=== PATIENT | female | born 1985 | race Caucasian/White ===

== ENCOUNTER 2018-08-08 17:29 | Outpatient (REF) | payer OTHER, SELFPAY | END 2018-08-08 17:49 | LOC: NCHCN 17:29 | PROVIDERS: PCP Nurse Practitioner; Visit Provider Advanced Practice Midwife | DX: Z34.83 Encounter for supervision of other normal pregnancy, third trimester (principal); Z36.85 Encounter for antenatal screening for Streptococcus B | CPT/HCPCS: 87081 ==

== ENCOUNTER 2018-09-03 09:01 | Outpatient (CLI) | payer OTHER, SELFPAY ==
[2018-09-03 10:02] LABS: HCT 35.4 % (36.0-46.0); HGB 11.8 g/dL (12.0-15.5); Mean Corp. HGB Concentration 33.3 g/dL (32.0-36.0); Mean Corpuscular Hemoglobin 27.8 pg (27.0-33.0); Mean Corpuscular Volume 83.3 fL (80-95); Mean Platelet Volume 9.8 fL (8.0-11.0); Platelet Count 368 x1000/uL (130-400); RBC 4.25 m/cumm (4.00-5.20); RBC Distribution Width 12.9 % (11.7-14.6); White Blood Cell Count 10.72 k/cumm (4.4-10.8)
[2018-09-03 10:14] LABS: COMMENT (LAB VIEW ONLY) 21.38 mg/dL; PROTEIN < 6.0 mg/dL
[2018-09-03 10:21] LABS: ALT 16 U/L (12-78); AST 15 U/L (15-37); Albumin 2.5 g/dL (3.4-5.0); Alkaline Phosphatase 179 U/L (46-116); Bilirubin, Direct < 0.05 mg/dL (0.00-0.20); Bilirubin, Total 0.2 mg/dL (0.2-1.0); Uric Acid 3.7 mg/dL (2.6-6.0)
== END 2018-09-03 09:21 ==
PROVIDERS: PCP Nurse Practitioner; Visit Provider Advanced Practice Midwife
DX: R03.0 Elevated blood-pressure reading, without diagnosis of hypertension (principal)
CPT/HCPCS: 36415; 80076; 85027; 82565; 84156; 84550

== ENCOUNTER 2018-09-09 15:36 | Outpatient (CLI) | payer OTHER, SELFPAY ==
[2018-09-09 16:18] LABS: HCT 36.8 % (36.0-46.0); HGB 12.2 g/dL (12.0-15.5); Mean Corp. HGB Concentration 33.2 g/dL (32.0-36.0); Mean Corpuscular Hemoglobin 27.2 pg (27.0-33.0); Mean Corpuscular Volume 82.1 fL (80-95); Mean Platelet Volume 9.8 fL (8.0-11.0); Platelet Count 351 x1000/uL (130-400); RBC 4.48 m/cumm (4.00-5.20); RBC Distribution Width 13.2 % (11.7-14.6); White Blood Cell Count 9.92 k/cumm (4.4-10.8)
--- NOTE | 2018-09-09 23:14 | W.PM.HP.N ---
Date of service: 09/09/18 Time of Service: 23:15 Assessment and Plan (1) : Current visit: Yes Status: Acute Patient is wishes to proceed with the delivery. Currently 41 weeks estimated gestational age. She declines tubal sterilization. Her plans to have the vasectomy in the near future. (2) Previous delivery affecting : Current visit: Yes Status: Acute Informed consent was obtained today we discussed the risks and benefits of the delivery. Risks included infection damage to surrounding structures including bowel bladder ureters and blood vessels. I described the procedure she had the opportunity to ask questions and had them answered to her satisfaction. History of Present Illness Narrative: Patient is a 32-year old female with a estimated date of delivery 09/04/2018 based on a first trimester ultrasound who presents for a preop history and physical in anticipation of a planned elective repeat delivery on 09/10/2018. course: She establish care at 8 weeks estimated gestational age. She had a total of 13 visits. Total weight gain 37 pounds first rest of blood pressure 110/58 the returns to blood pressure 120/86. Size has been equal today she had a normal second trimester morphology ultrasound. Normal OB labs she is GBS rectovaginal culture positive. She was counseled regarding trial of labor and wished to have a trial of labor if she were to go into spontaneous labor which has not occurred. Patient is has declined traveling to [facility] for induction of labor. Review of Systems Constitutional Reports system reviewed and no additional complaints, except as docu ENT Reports nasal discharge (rhinorhea) Respiratory Reports system reviewed and no additional complaints, except as docu Gastrointestinal Reports system reviewed and no additional complaints, except as docu Genitourinary Reports as per HPI Musculoskeletal Reports system reviewed and no additional complaints, except as docu Psychiatric Reports other [facility] Family History Mother Essential hypertension Son Asthma Medical History (Acute) Social History adopted: No foster care: No household members: spouse, children and other details: son is Shorty. 3yo marital status: Eula Farrell number of children: 1 current occupational status: employed current occupation: [employer] raising pets and animals: Yes (dog) pets and animals: dog(s) frequency: 5-6 times per week duration: 15-30 minutes/day Smoking/Tobacco Use Status: Never alcohol intake: former details: currently ( no alcohol) when not 5-7 drinks a week substance use type: does not use sindy/yarsani: athiest special sindy needs: No seatbelt use: always helmet use: Yes drive intox or ride w/ intox skip load driver: No working smoke detector in home: Yes fire extinguisher in home: Yes carbon monox detector in home: Yes firearms in home: Yes victim of physical abuse: No victim of emotional abuse: No victim of sexual abuse: No Surgical History section (04/09/15) Female Reproductive History Menstrual Total pregnancies: 2 Para: 1 Full term: 1 Premature: 0 Ab induced: 0 Ab spontaneous: 0 Ectopics: 0 Multiple births: 0 Meds Home Medications Medication Instructions Recorded Confirmed Type multivitamin [Multi-Vitamin Daily] 1 ea PO DAILY 02/13/18 09/09/18 History folic acid 0.4 mg PO DAILY #1 04/18/18 09/09/18 History lactobacillus combination no.4 1 tab PO DAILY 09/08/18 09/09/18 History [Probiotic] Allergies Allergy/AdvReac Type Severity Reaction Status Date / Time No Known Allergies Allergy Unverified 09/09/18 14:35 Exam Const General: healthy appearing, comfortable and other (Tearful during the preoperative discussion) Nutritional Appearance: well nourished Orientation: alert, awake and oriented x3 Resp Effort & Inspection: normal respiratory effort Auscultation: clear to auscultation bilaterally Cardio Palpation: normal PMI Rate: regular rate Rhythm: regular rhythm Heart Sounds: S1 normal and S2 normal GI Inspection: normal to inspection Palpation: no hepatosplenomegaly General: deferred OB/External & Speculum: other Skin General skin exam: no rashes or lesions noted Results Labs : 09/09/18 15:50 Laboratory Results - last 24 hr 09/09/18 09/09/18 15:50 15:50 WBC 9.92 RBC 4.48 Hgb 12.2 Hct 36.8 MCV 82.1 MCH 27.2 MCHC 33.2 RDW 13.2 Plt Count 351 MPV 9.8 Patient ABO/Rh O Positive Antibody Screen Negative
--- NOTE | 2018-09-09 23:17 | HPE_ITS ---
Date of service: 09/09/18 Time of Service: 23:15 Assessment and Plan (1) : Current visit: Yes Status: Acute Patient is wishes to proceed with the delivery. Currently 41 weeks estimated gestational age. She declines tubal sterilization. Her plans to have the vasectomy in the near future. (2) Previous delivery affecting : Current visit: Yes Status: Acute Informed consent was obtained today we discussed the risks and benefits of the delivery. Risks included infection damage to surrounding structures including bowel bladder ureters and blood vessels. I described the procedure she had the opportunity to ask questions and had them answered to her satisfaction. History of Present Illness Narrative: Patient is a 32-year old female with a estimated date of delivery 09/04/2018 based on a first trimester ultrasound who presents for a preop history and physical in anticipation of a planned elective repeat delivery on 09/10/2018. course: She establish care at 8 weeks estimated gestational age. She had a total of 13 visits. Total weight gain 37 pounds first rest of blood pressure 110/ 58 the returns to blood pressure 120/86. Size has been equal today she had a normal second trimester morphology ultrasound. Normal OB labs she is GBS rectovaginal culture positive. She was counseled regarding trial of labor and wished to have a trial of labor if she were to go into spontaneous labor which has not occurred. Patient is has declined traveling to [facility] for induction of labor. Review of Systems Constitutional Reports system reviewed and no additional complaints, except as docu ENT Reports nasal discharge (rhinorhea) Respiratory Reports system reviewed and no additional complaints, except as docu Gastrointestinal Reports system reviewed and no additional complaints, except as docu Genitourinary Reports as per HPI Musculoskeletal Reports system reviewed and no additional complaints, except as docu Psychiatric Reports other [facility] Family History Mother Essential hypertension Son Asthma Medical History (Acute) Social History adopted: No foster care: No household members: spouse, children and other details: son is Shorty. 3yo marital status: Eula Farrell number of children: 1 current occupational status: employed current occupation: [employer] raising pets and animals: Yes (dog) pets and animals: dog(s) frequency: 5-6 times per week duration: 15-30 minutes/day Smoking/Tobacco Use Status: Never alcohol intake: former details: currently ( no alcohol) when not 5-7 drinks a week substance use type: does not use sindy/baptism: athiest special sindy needs: No seatbelt use: always helmet use: Yes drive intox or ride w/ intox motor driver: No working smoke detector in home: Yes fire extinguisher in home: Yes carbon monox detector in home: Yes firearms in home: Yes victim of physical abuse: No victim of emotional abuse: No victim of sexual abuse: No Surgical History section (04/09/15) Female Reproductive History Menstrual Total pregnancies: 2 Para: 1 Full term: 1 Premature: 0 Ab induced: 0 Ab spontaneous: 0 Ectopics: 0 Multiple births: 0 Meds Home Medications Medication Instructions Recorded Confirmed Type multivitamin [Multi-Vitamin Daily] 1 ea PO DAILY 02/13/18 09/09/18 History folic acid 0.4 mg PO DAILY #1 04/18/18 09/09/18 History lactobacillus combination no.4 1 tab PO DAILY 09/08/18 09/09/18 History [Probiotic] Allergies Allergy/AdvReac Type Severity Reaction Status Date / Time No Known Allergies Allergy Unverified 09/09/18 14:35 Exam Const General: healthy appearing, comfortable and other (Tearful during the preoperative discussion) Nutritional Appearance: well nourished Orientation: alert, awake and oriented x3 Resp Effort & Inspection: normal respiratory effort Auscultation: clear to auscultation bilaterally Cardio Palpation: normal PMI Rate: regular rate Rhythm: regular rhythm Heart Sounds: S1 normal and S2 normal GI Inspection: normal to inspection Palpation: no hepatosplenomegaly General: deferred OB/External & Speculum: other Skin General skin exam: no rashes or lesions noted Results Labs : 09/09/18 15:50 Laboratory Results - last 24 hr 09/09/18 09/09/18 15:50 15:50 WBC 9.92 RBC 4.48 Hgb 12.2 Hct 36.8 MCV 82.1 MCH 27.2 MCHC 33.2 RDW 13.2 Plt Count 351 MPV 9.8 Patient ABO/Rh O Positive Antibody Screen Negative
== END 2018-09-09 15:56 ==
PROVIDERS: PCP Nurse Practitioner; Visit Provider Obstetrics & Gynecology Gynecology
DX: O75.82 Onset (spontaneous) of labor after 37 completed weeks of gestation but before 39 completed weeks gestation, with delivery by (planned) cesarean section (principal); Z01.818 Encounter for other preprocedural examination
CPT/HCPCS: 36415; 85027; 86850; 86900; 86901; NC

== ENCOUNTER 2018-09-10 06:25 | Inpatient (IN) | payer OTHER, SELFPAY ==
[2018-09-10 06:33] VITALS: BP 115/70; PULSE 99; RESP 16; TEMP 36.2; O2SAT 98
[2018-09-10] MEDS: Lactated Ringers 1,000 ML 125 ML IV ×2 (07:07→08:25)
[2018-09-10] MEDS: Ketorolac 30 MG/ML VIAL IVP (14:46)
[2018-09-10] MEDS: Ibuprofen 600 MG TAB PO (22:10)
--- NOTE | 2018-09-10 22:31 | ROE_ITS ---
DATE OF PROCEDURE: September 10, 2018 PREOPERATIVE DIAGNOSIS: #1. Intrauterine at 40-6/7 weeks' estimated gestational age. #2. Previous delivery. POSTOPERATIVE DIAGNOSIS: Same. PROCEDURE: Elective repeat low transverse delivery. SURGEON: Jina Olivera M.D. SILVER SERVICE WAITER: Arabella Meyers PA-C ANESTHESIA: Spinal, by Yvonne Lozano CRNA, and Jamari Marte, student nurse storyboard artist FLUIDS: 1500 cc URINE OUTPUT: 100 cc of clear ritu urine in the Swanson catheter at completion of the procedure. ESTIMATED BLOOD LOSS: 500 cc DRAINS: Swanson to gravity drainage. SPECIMENS: Cord blood to lab. COMPLICATIONS: None. DISPOSITION: Awake, oriented, and transported to the recovery area via gurney in stable condition. INDICATIONS: This is a 32-year-old, G2, P1 female with a previous low transverse delivery w ho had decided to attempt a trial of labor if she were to go into spontaneous labor before 41 weeks' estimated gestational age. The patient showed no evidence of spontaneous labor and decided to elect for a repeat delivery. FINDINGS AT THE TIME OF SURGERY: A viable female who will be called Saba in a cephalic pre sentation with minimal amniotic fluid noted. No nuchal cord. Weight 3250 grams (7 pounds, 3 ounces) . Apgars 9 at 1 minute and 8 at 5 minutes. Normal placenta, uterus, and adnexa. DESCRIPTION OF PROCEDURE: The patient was taken to the Operating Room where she was placed in the si tting position. A spinal anesthesia was administered without difficulty. She was then placed in the dorsal supine position with a leftward tilt, prepped and draped in the usual sterile fashion. A Bet adine vaginal prep was performed in addition to the usual abdominal prep. She received 2 grams of An cef prior to skin incision. SCDs were in place. A scalpel was used to incise along the previous Pfannenstiel skin incision. The underlying subcutane ous tissue was dissected using Bovie electrocautery to the level of the rectus fascia. The rectus fa scia was then nicked in the midline with a scalpel and the incision was extended laterally using curv ed Salgado scissors. Two Madalyn clamps were applied to the inferior aspect of the rectus fascia and the rectus fascia dissected off of the underlying rectus muscles using Bovie electrocautery. A similar technique was carried out on the superior aspect of the rectus fascia. The rectus muscle were then s eparated in the midline and the peritoneum was identified, tented up and entered bluntly, with the pe ritoneal incision extended using blunt technique. A bladder blade was placed through the incision an d the bladder was retracted away from the operative field. A bladder flap was created digitally usin g Metzenbaum scissors to incise the vesicouterine fold and the bladder flap was then developed digita carie. Once again, the bladder blade was reinserted to retract the bladder from the operative field. A scalpel was used to incise the lower uterine segment in a transverse fashion. Upon entry into the uterine cavity, as previously noted, very little amniotic fluid was encountered. The uterine incisio n was then extended bluntly, a single gloved hand was placed into the uterus, and the head was brought to the incision with the assistance of fundal pressure. I was unable to successfully deliver the head through the incision. A Kiwi cup suction was then applied to the head and, wit h the assistance of a Kiwi cup and gentle traction, the head was delivered, followed by the shon ulders, trunk, and extremities. The cord was doubly clamped and cut. The was handed off to t he waiting pediatric team. The placenta was then delivered with gentle cord traction and fundal uterine massage. Once the place nta was delivered intact, the uterus was exteriorized, cleared of all clots and debris, and the uteri ne incision was reapproximated with a running locked suture of #0 Vicryl, followed by a second suture of #0 Vicryl in a vertical mattress fashion. Two interrupted sutures of #0 Vicryl were placed along the lateral right and left lateral margins to ensure hemostasis. After inspection of the uterine in cision, which was noted to be hemostatic, the uterus was returned to the abdomen. The paracolic gutt er was cleared of all clots and debris. The abdominal wall peritoneum was then reapproximated with a running suture of #2-0 Vicryl. The rectus fascia was then closed with #0 Vicryl extending from the lateral margins and overlapping in the midline. A space of the subcutaneous tissue was closed w ith a running suture of #2-0 Vicryl and the skin incision was reapproximated with a subcuticular clos ure of #4-0 Vicryl. The skin was sealed with skin glue. The fundus was massaged for any remaining c lots and debris. [facility] and transported to the recovery area in stable condition. All sponge and needle counts were correct x2.
[2018-09-11 07:09] LABS: HCT 32.9 % (36.0-46.0); HGB 10.7 g/dL (12.0-15.5); Mean Corp. HGB Concentration 32.5 g/dL (32.0-36.0); Mean Corpuscular Hemoglobin 27.1 pg (27.0-33.0); Mean Corpuscular Volume 83.3 fL (80-95); Mean Platelet Volume 9.6 fL (8.0-11.0); Platelet Count 282 x1000/uL (130-400); RBC 3.95 m/cumm (4.00-5.20); RBC Distribution Width 13.2 % (11.7-14.6); White Blood Cell Count 10.71 k/cumm (4.4-10.8)
[2018-09-11] MEDS: Ibuprofen 600 MG TAB PO ×3 (07:38→21:27)
[2018-09-11] MEDS: Acetaminophen 325 MG TAB 650 MG PO ×2 (14:14→21:26)
[2018-09-11] MEDS: Docusate Sodium 100 MG CAP PO (21:26)
[2018-09-12] MEDS: Ibuprofen 600 MG TAB PO (10:51)
[2018-09-12] MEDS: Acetaminophen 325 MG TAB 650 MG PO (10:51)
== END 2018-09-12 14:15 | disposition home or self-care (01) | DRG 788 ==
LOC: PDS 08:23 → OBS 09:48 → PDS 09:52 → OBS 09:52
PROVIDERS: Admitting Provider Obstetrics & Gynecology Gynecology; PCP Nurse Practitioner; Visit Provider Obstetrics & Gynecology Gynecology
PROC: 10D00Z1 Extraction of Products of Conception, Low, Open Approach (ICD-10-PCS; CPT 59514; principal; 2018-09-10 07:30)
DX: O34.211 Maternal care for low transverse scar from previous cesarean delivery (principal); O48.0 Post-term pregnancy; Z37.0 Single live birth; Z3A.41 41 weeks gestation of pregnancy; O99.824 Streptococcus B carrier state complicating childbirth; O42.92 Full-term premature rupture of membranes, unspecified as to length of time between rupture and onset of labor
CPT/HCPCS: 59514; 36415; 85027; J0131; J0690; J1885; J2405; J2590; J3010; J3490

== ENCOUNTER 2018-10-23 14:42 | Outpatient (REF) | payer OTHER, SELFPAY ==
--- NOTE | 2018-10-23 13:45 | PAPFT_PTH ---
PATIENT: Gela Reinoso LOC: [facility] U#:[id number] AGE/SX: 32/F ROOM: RE10/23/[address]: Jennifer Live MD : 1985 BED: DIS: 10/23/2018 SPEC #: [id number] RECD: 10/23/18 18:23 STATUS: TRISHA REQ #: [id number] EDEN: 10/23/18 13:[address]: Jennifer Live DEPT: [facility] Cytology RECD BY: Kiki Nolen ENTERED: 10/23/18 18:23 SP TYPE: PAPFT OTHR DR: Alma Lin Tissues: 1 - CX/ENDOCX FOR PAP SMEARS Procedures: PAP THIN PREP/UVM Screening HPV DNA PROBE Comments: [id number]
== END 2018-10-23 15:02 ==
LOC: LBN 14:42
PROVIDERS: PCP Nurse Practitioner; Visit Provider Obstetrics & Gynecology
DX: Z12.4 Encounter for screening for malignant neoplasm of cervix (principal); Z11.51 Encounter for screening for human papillomavirus (HPV)
CPT/HCPCS: 88142; 87624

== ENCOUNTER → 2024-03-20 00:34 | Outpatient (CLI) | payer OTHER, SELFPAY ==
--- NOTE | 2024-03-20 | DI.MAMMO_ITS ---
Exam(s) MAMMO SCREENING EXAM: MAMMO SCREENING CLINICAL HISTORY: SCREENING, Z12.31 TECHNIQUE: Bilateral full field digital CC and MLO mammographic images were obtained with 3D tomosyn thesis and utilizing computer aided detection (CAD). COMPARISON: This is a baseline examination. FINDINGS: Masses/Architectural Distortion: None seen. Microcalcifications: No suspicious pleomorphic-type are seen. Skin Thickening/Nipple Retraction: None. IMPRESSION: 1. No evidence for malignancy is noted at this time. 2. Unless there is more urgent need, screening mammography is recommended, as per [employer] guidelines. BI-RADS Category 1 - Negative Breast Density - Category B - Scattered areas of fibroglandular density Breast density category C or D implies that the patient has dense breast tissue. Dense breast tissue is very common and is not abnormal but dense breast tissue can make it harder to find cancer on a ma mmogram. Also, dense breast tissue may increase their breast cancer risk. This information about the result of the mammogram report was provided to the patient to raise their awareness. Use this report when you speak with the patient about their risks for breast cancer, which includes their family hist ory. At that time, you may recommend for more screening tests (Ultrasound or MRI) as they might be us eful based on their risk. A negative radiographic report should not delay biopsy if a dominant or clinically suspicious mass is present. Up to ten percent of cancers are not identified on mammography. A negative report may reinforce clinical impression. Adenosis and dense breasts may obscure an underlying neoplasm. False positive reports average 6 to 10%. Patient will receive a letter notifying them of these results.
== END ==
PROVIDERS: Visit Provider Nurse Practitioner Family
DX: Z12.31 Encounter for screening mammogram for malignant neoplasm of breast (principal)
CPT/HCPCS: 77063; 77067

== ENCOUNTER 2024-03-20 13:55 | Outpatient (CLI) | payer OTHER, SELFPAY ==
[2024-03-20 15:23] LABS: TSH (W/Ref FT4) 2.02 uIU/mL (0.36-3.74)
== END 2024-03-20 13:56 | disposition home or self-care (01) ==
LOC: LBO 13:55
PROVIDERS: Visit Provider Obstetrics & Gynecology
DX: N92.1 Excessive and frequent menstruation with irregular cycle (principal); Z01.419 Encounter for gynecological examination (general) (routine) without abnormal findings
CPT/HCPCS: 36415; 84443

== ENCOUNTER 2024-03-20 17:29 | Outpatient (REF) | payer OTHER, SELFPAY ==
--- NOTE | 2024-03-20 13:20 | PAPFT_PTH ---
PATIENT: Gela Reinoso LOC: [facility] U#:[id number] AGE/SX: 38/F ROOM: RE03/20/[address]: Sarah Rodriguez DO : 1985 BED: DIS: 03/20/2024 SPEC #: [id number] RECD: 03/20/24 17:53 STATUS: TRISHA REQ #: [id number] EDEN: 03/20/24 13:[address]: Sarah Rodriguez DEPT: [facility] Cytology RECD BY: Kiki Nolen ENTERED: 03/20/24 17:53 SP TYPE: PAPFT OTHR DR: Unknown,Unknown Tissues: 1 - CX/ENDOCX FOR PAP SMEARS Procedures: PAP THIN PREP/UVM Screening HPV DNA PROBE Comments: [id number]
== END 2024-03-20 17:30 | disposition home or self-care (01) ==
LOC: LBN 17:29
PROVIDERS: Visit Provider Obstetrics & Gynecology
DX: Z11.51 Encounter for screening for human papillomavirus (HPV) (principal); Z12.4 Encounter for screening for malignant neoplasm of cervix
CPT/HCPCS: 88142; 87624

== ENCOUNTER 2025-03-23 00:11 | Outpatient (CLI) | payer OTHER, SELFPAY ==
--- NOTE | 2025-03-23 12:54 | DI.MAMMO_ITS ---
Exam(s) MAMMO SCREENING EXAM: MAMMO SCREENING CLINICAL HISTORY: Screening, Z12.31 TECHNIQUE: Mammograms were interpreted according to the usual protocol including computer analysis w [employer] CAD system, tomosynthesis and C-view imaging. COMPARISON: 2023 FINDINGS: The breasts are composed of scattered fibroglandular densities, Breast Density category B. No suspicious masses or suspicious microcalcifications are seen. No skin thickening or abnormal axillary lymph nodes are seen. There has been no significant change from prior exams. IMPRESSION: BI-RADS Category 1, Negative mammogram Yearly screening mammography is recommended. Breast Density - Category B, scattered fibroglandular densities. A negative radiographic report should not delay biopsy if a dominant or clinically suspicious mass is present. Up to ten percent of cancers are not identified on mammography. A negative report may reinforce clinical impression. Adenosis and dense breasts may obscure an underlying neoplasm. False positive reports average 6 to 10%. Patient will receive a letter notifying them of these results.
== END 2025-03-23 00:31 ==
LOC: DI 00:11
PROVIDERS: PCP Nurse Practitioner Family; Visit Provider Nurse Practitioner Family
DX: Z12.31 Encounter for screening mammogram for malignant neoplasm of breast (principal); R92.323 Mammographic fibroglandular density, bilateral breasts
CPT/HCPCS: 77063; 77067

== ENCOUNTER 2025-03-23 15:27 | Outpatient (REF) | payer OTHER, SELFPAY | END 2025-03-23 15:28 | disposition home or self-care (01) | LOC: LBN 15:27 | PROVIDERS: PCP Nurse Practitioner Family; Visit Provider Obstetrics & Gynecology | DX: Z12.4 Encounter for screening for malignant neoplasm of cervix (principal) | CPT/HCPCS: 88142; 87624 ==

== ENCOUNTER 2025-08-16 10:41 | Outpatient (REF) | payer OTHER, SELFPAY ==
[2025-08-17 11:56] LABS: Chlamydia Result Negative (Negative); GC Result Negative (Negative)
== END 2025-08-16 10:42 | disposition home or self-care (01) ==
LOC: LBN 10:41
PROVIDERS: Visit Provider Obstetrics & Gynecology
DX: Z11.3 Encounter for screening for infections with a predominantly sexual mode of transmission (principal); Z20.2 Contact with and (suspected) exposure to infections with a predominantly sexual mode of transmission
CPT/HCPCS: 87491; 87591